=== PATIENT | female | born 1935 | race Caucasian/White ===

== ENCOUNTER 2020-03-08 11:08 | Day surgery (SDC) | payer MEDICARE, OTHER ==
[2020-03-09 11:54] LABS: SARS-CoV-2 MS2 Positive; SARS-CoV-2 N Gene Negative; SARS-CoV-2 S Gene Negative; SARS-CoV-2 by NAA Not Detected (NotDetected); SARS-CoV-2 orf1ab Negative
== END 2020-03-08 11:50 | disposition home or self-care (01) ==
LOC: ERS 11:08 → EDSTATUS 11:40 → ER/OP 11:45
DX: Z03.818 Encounter for observation for suspected exposure to other biological agents ruled out (principal); I10 Essential (primary) hypertension
CPT/HCPCS: 87635; U0003